=== PATIENT | female | born 1990 | race Caucasian/White ===

== ENCOUNTER 2019-05-20 16:37 | Emergency (ER) | payer SELFPAY ==
[2019-05-20] MEDS ORDERED: NORMAL SALINE 1000 ML 1,000 ML IV ONE (16:59)
--- NOTE | 2019-05-20 17:25 | ER Document Report ---
ED Psych Disorder / Suicide <MUSAVASU - Last Filed: 05/21/19 09:19> <KINGS HINES - Last Filed: 05/21/19 09:31> <DONALDO HAMILTON - Last Filed: 05/21/19 13:18> - General Stated Complaint: POSSIBLE OVERDOSE Time Seen by Provider: 05/20/19 16:59 Primary Care Provider: [facility] [Outside] - Follow up in 3-5 days [facility] [Outside] - Follow up as needed Notes: Patient got into an argument with her boyfriend and took 4 of a friend's 50 amitriptyline pills about 3 to 4 hours ago. She said that she was angry and thought about killing herself when she took the pills. EMS was called and they arrived on the scene to find the patient with a heart rate of 145. Patient was given 50 g of charcoal p.o. and drank the entire bottle and kept it down. Patient says she did not notice her heart going very fast and did not have any chest pains., Etc. Patient has never had any mental conditions. Not on any current medications. She is living with her boyfriend for the past 4 months or so. She is originally from [place] and does not have any local family, only a few people are known to her. Patient is never had any surgeries. (DONALDO HAMILTON) Past Medical History - Social History Smoking Status: Unknown if Ever Smoked Family History: Reviewed & Not Pertinent - Medical History Medical History: Negative <DONALDO HAMILTON - Last Filed: 05/21/19 13:18> Review of Systems <DONALDO HAMILTON - Last Filed: 05/21/19 13:18> - Review of Systems Notes: CONSTITUTIONAL : Denies fever. CARDIOVASCULAR: Denies chest pain. RESPIRATORY: Denies cough, chest congestion, or shortness of breath. GASTROINTESTINAL: Denies abdominal pain or nausea, vomiting, or diarrhea. GENITOURINARY: Denies difficulty or painful urinating, urinary frequency, blood in urine. (DONALDO HAMILTON) Physical Exam - Vital signs Interpretation: Normal <DONALDO HAMILTON - Last Filed: 05/21/19 13:18> - Vital signs Vitals: Temp Resp BP Pulse Ox 98.3 F 16 127/80 H 100 05/20/19 19:00 09/12/19 19:00 05/20/19 19:00 05/20/19 19:00 Notes: PHYSICAL EXAMINATION: GENERAL: Well-appearing, no acute distress. HEAD: Atraumatic, normocephalic. NECK: Normal range of motion, supple. LUNGS: Breath sounds clear and equal bilaterally. HEART: Regular rate and rhythm without murmurs heard. ABDOMEN: Soft, nontender. No guarding or rebound or masses felt. (DONALDO HAMILTON) Course - Laboratory Result Diagrams: 05/20/19 16:04 05/20/19 16:04 <VASU MUSA - Last Filed: 05/21/19 09:19> - Laboratory Result Diagrams: 05/20/19 16:04 05/20/19 16:04 <KINGS HINES - Last Filed: 05/21/19 09:31> - Laboratory Result Diagrams: 05/20/19 16:04 05/20/19 16:04 - EKG Interpretation by Tn EKG shows normal: Sinus rhythm Rate: Tachycardia Rhythm: NSR <DONALDO HAMILTON - Last Filed: 05/21/19 13:18> - Re-evaluation Re-evalutation: 05/20/19 17:28 Patient will be evaluated with routine lab studies. Her admission EKG shows a normal sinus rhythm tachycardia with a rate of 118. (DONALDO HAMILTON) - Vital Signs Vital signs: Temp Pulse Resp BP Pulse Ox 97.9 F 100 16 117/86 H 100 05/21/19 09:38 05/21/19 09:38 05/21/19 09:38 05/21/19 09:38 05/21/19 09:38 - Laboratory Laboratory results interpreted by ny: 05/20/19 05/20/19 16:04 17:20 Glucose 127 H Urine Blood MODERATE H Urine Nitrite POSITIVE H Ur Leukocyte Esterase LARGE H Salicylates < 1.0 L Acetaminophen < 10 L Discharge <VASU MUSA - Last Filed: 05/21/19 09:19> <KINGS HINES - Last Filed: 05/21/19 09:31> <DONALDO HAMILTON - Last Filed: 05/21/19 13:18> - Discharge Clinical Impression: Suicidal ideation Overdose Qualifiers: Encounter type: initial encounter Injury intent: undetermined intent Qualified Code(s): T50.904A - Poisoning by unspecified drugs, medicaments and biological substances, undetermined, initial encounter Condition: Stable Disposition: HOME, SELF-CARE Additional Instructions: You have been evaluated by both medical and behavioral health teams and have been deemed appropriate for discharge. You have been provided a local resource list of area providers, including mobile crisis contact information. You are encouraged to obtain therapeutic services to build your positive coping skills. DEPRESSION: Your evaluation reveals that you have mental depression. While symptoms may be vague, they often include disturbance of sleep, fatigue, loss of appetite, and general loss of interest in life. While depression may be a side effect of drugs, or a reaction to a major change in your life, many cases have no known cause. If depression is acute, and related to a major loss in your life, you can expect it to clear completely with time. If you have been depressed a long time, are prone to repeated bouts of depression or low mood, or have been thinking of suicide, get help. Depression can be treated with anti-depressant medication and counselling. Long-term depression will often take a few weeks to clear, even with appropriate medication. Follow-up care is important. SUICIDAL IDEATION: Suicidal ideation is a common medical term for thoughts about suicide, which may be as detailed as a formulated plan, without the suicidal act itself. Although most people who undergo suicidal ideation do not commit suicide, some go on to make suicide attempts. The range of suicidal ideation varies greatly from fleeting to detailed planning, role playing, and unsuccessful attempts. While thoughts about suicide are common, most people do not carry out ser ious actions to commit suicide. Based upon your evaluation and discussion with you, we do not believe you are currently at risk to act upon your thoughts of suicide. You have agreed to return to the Emergency Department, at any time, if you feel inclined to act upon your suicidal thoughts. Overdose You have taken more medication than you should have. After your evaluation and care, it is felt that your overdose is not likely to be harmful or of any significant consequences to you and you are being discharged. Although your overdose does not seem to be of any danger to you at this time, if you develop any unusual or unexpected symptoms after your discharge, you should return to the Emergency Department immediately for re-evaluation. Referrals: [facility] [Outside] - Follow up as needed [facility] [Outside] - Follow up in 3-5 days
[2019-05-20 17:32] LABS: ABSOLUTE BASOPHILS # (AUTO) 0.1 10^3/uL (0.0-0.2); ABSOLUTE EOSINOPHILS # (AUTO) 0.1 10^3/uL (0.0-0.6); ABSOLUTE LYMPHOCYTES (AUTO) 2.2 10^3/uL (0.5-4.7); ABSOLUTE MONOCYTES (AUTO) 0.4 10^3/uL (0.1-1.4); ABSOLUTE NEUT (AUTO) 5.8 10^3/uL (1.7-8.2); BASOPHILS % (AUTO) 0.7 % (0-2); EOSINOPHILS % (AUTO) 1.3 % (0-6); HEMATOCRIT 42.1 % (36.0-47.0); HEMOGLOBIN 14.1 g/dL (12.0-15.5); LYMPHOCYTES % (AUTO) 25.9 % (13-45); MEAN CORPUSCULAR HEMOGLOBIN 31.4 pg (27.0-33.4); MEAN CORPUSCULAR HGB CONC 33.4 g/dL (32.0-36.0); MEAN CORPUSCULAR VOLUME 94 fl (80-97); MONOCYTES % (AUTO) 5.2 % (3-13); RED BLOOD COUNT 4.47 10^6/uL (3.72-5.28); RED CELL DISTRIBUTION WIDTH 12.9 % (11.5-14.0); SEGMENTED NEUTROPHILS % (AUTO) 66.9 % (42-78); TOTAL CELLS COUNTED % (AUTO) 100 %; WHITE BLOOD COUNT 8.6 10^3/uL (4.0-10.5)
[2019-05-20 17:40] LABS: ALBUMIN 4.6 g/dL (3.5-5.0); ALKALINE PHOSPHATASE 55 U/L (38-126); ANION GAP 13 (5-19); ASPARTATE AMINO TRANSFERASE 26 U/L (14-36); BILIRUBIN,DIRECT 0.1 mg/dL (0.0-0.4); BILIRUBIN,TOTAL 0.3 mg/dL (0.2-1.3); BLOOD UREA NITROGEN 7 mg/dL (7-20); CALCIUM 10.2 mg/dL (8.4-10.2); CARBON DIOXIDE 24 mmol/L (22-30); CHLORIDE 105 mmol/L (98-107); GLUCOSE 127 mg/dL (75-110); TOTAL PROTEIN 7.4 g/dL (6.3-8.2)
[2019-05-20 17:42] LABS: ACETAMINOPHEN < 10 ug/mL (10-30); ALCOHOL < 10 mg/dL (NONE DETECTED); SALICYLATE < 1.0 mg/dL (2.0-20.0)
[2019-05-20 17:42] LABS: APPEARANCE,URINE CLOUDY; BILIRUBIN,URINE NEGATIVE (NEGATIVE); COLOR,URINE YELLOW; GLUCOSE, URINE NEGATIVE (NEGATIVE); KETONES,URINE NEGATIVE (NEGATIVE); LEUKOCYTE ESTERASE,URINE LARGE (NEGATIVE); NITRITE,URINE POSITIVE (NEGATIVE); PROTEIN,URINE NEGATIVE (NEGATIVE); UROBILINOGEN,URINE NEGATIVE mg/dL (<2.0)
[2019-05-20 18:02] LABS: URINE AMPHETAMINES SCREEN NEGATIVE; URINE BARBITURATES SCREEN NEGATIVE; URINE BENZODIAZEPINES SCREEN NEGATIVE; URINE COCAINE SCREEN NEGATIVE; URINE MARIJUANA (THC) SCREEN UNCONFIRMED POSITIVE; URINE METHADONE SCREEN NEGATIVE; URINE PHENCYCLIDINE SCREEN NEGATIVE
[2019-05-20 18:07] LABS: ADD MANUAL MICROSCOPIC YES
[2019-05-20 18:08] LABS: PLATELET COUNT 163 10^3/uL (150-450)
[2019-05-20 18:10] LABS: AMORPHOUS SEDIMENT,UR 3+; BACTERIA,URINE 4+ /HPF; RBC,URINE RARE /HPF; WBC,URINE 30-50 /HPF
--- NOTE | 2019-05-21 08:50 | EKG REPORT ---
SEVERITY:- OTHERWISE NORMAL ECG - SINUS TACHYCARDIA : Confirmed by: Zeenat Nguyen MD 21-May-2019 08:49:38
--- NOTE | 2019-05-21 09:03 | PSYCHOLOGICAL NOTE ---
Psych Note - Psych Note Date seen by psych provider: 05/21/19 Time seen by psych provider: 08:00 Psych Note: Reason for consult: Overdose Consent permissions: Patient's boyfriend Michael, Patient got into an argument with her boyfriend and took 4 of a friend's 50 amitriptyline pills about 3 to 4 hours ago. She said that she was angry and thought about killing herself when she took the pills. Intentional overdose after argument with boyfriend No medication recommendations at this time Impression\plan: Patient is cleared from acute psychiatric services. Patient denies current suicidal and homicidal ideation. Patient boyfriend agrees to be part of patient's plan of care i.e. no access to medications and weapons and follow through with mental health recommendations. Patient is highly encouraged to follow through with outpatient mental health services for therapeutic services. Patient has been provided a local resource list of area providers including mobile crisis contact information. Clinician and patient reviewed positive coping skills. Dr. Carroll was consulted to care management of this patient; attending physicians in agreement with recommendations and disposition.
[2019-05-21 09:42] VITALS: BP 117/86
== END 2019-05-21 09:45 | disposition home or self-care (01) ==
LOC: ER 16:37
DX: T43.011A Poisoning by tricyclic antidepressants, accidental (unintentional), initial encounter (principal); Y92.009 Unspecified place in unspecified non-institutional (private) residence as the place of occurrence of the external cause
CPT/HCPCS: 93005; 99285; 96360; 36415; 87086; 80307 ×4; 84703; 85025; 87088; 80053; 81001; 87186; 93010; J7030